=== PATIENT | female | born 1955 | race Caucasian/White ===

== ENCOUNTER 2016-07-10 15:03 | Outpatient (CLI) | payer BC ==
--- NOTE | 2016-07-10 15:46 | RAD ---
TWO VIEWS OF THE CHEST: Comparison: None. History: Positive PPD. FINDINGS: Two views of the chest show normal sized cardiomediastinal silhouette. There is no evidence of conso lidation, mass, or pleural effusion. Degenerative changes are seen in the spine. IMPRESSION: No evidence of acute cardiopulmonary disease. POS: [facility]
== END 2016-07-10 15:04 | disposition home or self-care (01) ==
LOC: BURRAD 15:03
PROVIDERS: ATTEND Family Medicine
DX: R76.11 Nonspecific reaction to tuberculin skin test without active tuberculosis (principal)
CPT/HCPCS: 71020

== ENCOUNTER 2023-05-01 10:20 | Outpatient (CLI) | payer MEDICARE | END 2023-05-01 10:21 | disposition home or self-care (01) | LOC: BURRAD 10:20 | PROVIDERS: ATTEND Family Medicine | DX: R09.89 Other specified symptoms and signs involving the circulatory and respiratory systems (principal) | CPT/HCPCS: 71046 ==